=== PATIENT | female | born 1945 | race Caucasian/White ===

== ENCOUNTER 2018-04-12 23:05 | Inpatient (IN) | END 2018-04-18 18:44 | disposition home or self-care (01) | DRG 65 ==

== ENCOUNTER 2018-05-31 09:09 | Emergency (ER) | END 2018-05-31 11:46 | disposition home or self-care (01) ==

== ENCOUNTER 2018-06-02 08:10 | Emergency (ER) | END 2018-06-02 08:59 | disposition home or self-care (01) ==